=== PATIENT | male | born 1985 | race Caucasian/White ===

== ENCOUNTER 2020-07-01 23:55 | Inpatient (IN) | payer OTHER, BC ==
[2020-07-02] MEDS ORDERED: SODIUM CHLORIDE 0.9% 500 ML INFUS.BAG IV ONE (00:19)
[2020-07-02] MEDS ORDERED: ONDANSETRON 4 MG/2 ML VIAL IVPUSH ONE ×2 (00:19→02:41)
--- NOTE | 2020-07-02 00:25 | PDOC ---
History of Present Illness - General Chief Complaint: Nausea/Vomiting Stated Complaint: NAUSEA/VOMITING Time Seen by Provider: 07/02/20 00:11 Past History - Medical History Allergies/Adverse Reactions: Allergies Allergy/AdvReac Type Severity Reaction Status Date / Time Penicillins Allergy Intermediate Hives Verified 07/02/20 10:24 Home Medications: Ambulatory Orders Methylphenidate HCl [Methylphenidate ER] 20 mg PO PRN 07/02/20 Famotidine [Acid Controller] 20 mg PO BID #30 tablet 07/03/20 Metoclopramide HCl 5 mg PO Q6H PRN #30 tablet MDD For 07/03/20 - Psycho-Social/Smoking History Smoking History: Never smoked Have you smoked in the past 12 months: No Information on smoking cessation initiated: No - Substance Abuse Hx (Audit-C & DAST Scrn) How often the patient has a drink containing alcohol: Never Score: In Men: 4 or > Positive; In Women: 3 or > Positive: 0 Screen Result (Pos requires Nsg. Audit-10AR): Negative In the last yr the pt used illegal drug/Rx for NonMed reason: No Score: Yes response is considered Positive: 0 Screen Result (Positive result requires Nsg. 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 Endorses diffuse abdominal discomfort while retching started after vomiting. Tried Peptobismol without improvement. Unable to keep down anything. USOH prior to 5pm. ROS: Constitutional: Positive for feeling hot. Negative for chills, fever, fatigue, diaphoresis. HENT: Negative for sore throat, rhinorrhea, congestion. Eyes: Negative for visual disturbance. Respiratory: Negative for shortness of breath, cough, and wheezing. Cardiovascular: Negative for chest pain, palpitations, and leg swelling. Gastrointestinal: Positive for abdominal discomfort, nausea, and vomiting. Negative for blood in stool, constipation, diarrhea,. Genitourinary: Negative for dysuria, flank pain, and hematuria. Musculoskeletal: Negative for myalgias, back pain, and neck pain. Skin: Negative for rash. Neurological: Negative for light-headedness, dizziness, vertigo, syncope, weakness, numbness and headaches. Psychiatric/Behavioral: Negative for behavioral problems and confusion. PE: Gen: Alert, NAD, uncomfortable-appearing, actively throwing up HEENT: PERRL, EOMI, dry MM, NCAT. No conjunctival pallor. Sclera are non- icteric. CV: Regular rate and rhythm. No murmurs, rubs, or gallops. PULM: No resp distress. CTAB, no wheezes, rales, or rhonchi. ABD: soft, NT/ND, no rebound tenderness or guarding, no CVA tenderness. BACK: No TTP of c/t/l-spine. No step-offs or deformities. MSK: No bony deformities. 2+ pulses in all extremities. NEURO: AAOx3. PERRL. No gross CN deficits. Strength and sensation grossly intact throughout. EXTREMITIES: No cyanosis. No clubbing. No edema. No calf tenderness. PSYCH: Normal mood and thought pattern. SKIN: Warm and dry. Normal capillary refill. No rashes. No jaundice. 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 Tachycardic, hypertensive, otherwise hemodynamically stable, afebrile. Ddx: heat stroke, heat exhaustion, dehydration, rhabdo, ACS/AZ, arrhythmia, pancreatitis, metabolic derangement, anemia, infection -EKG -CXR -Zofran 4 -IVF -CBC,CMP,Lipase,Cardiac profile,Mg,Phos -Dispo: pending w/u and reassessment 07/02/20 02:35 EKG reviewed: NSR, 74bpm, normal axis, normal intervals, no TWIs, no ST elevations or depressions CXR reviewed: no acute pathology Continued nausea. -Reglan 10 Labs reviewed. Notable for hyponatremia 121 and hypomagnesemia 1.6 and leukocytosis 16 -1L LR finished, running 1L NS now Continued nausea. -Salas 4 -Admit for hyponatremia Discharge - Discharge Information Problems reviewed: Yes Clinical Impression/Diagnosis: Hyponatremia, Hypomagnesemia, Vomiting Condition: Improved Disposition: HOME - Admission Yes - Follow up/Referral - Patient Discharge Instructions - Post Discharge Activity
[2020-07-02] MEDS ORDERED: LACTATED RINGERS SOLUTION 1000 ML INFUS.BAG IV ONE (00:30)
--- NOTE | 2020-07-02 00:37 | PDOC ---
Documentation entered by Lynne Tariq SCRIBE, acting as scribe for Kacy Beatty MD. Kacy Beatty MD: This documentation has been prepared by the Leora dixon Sydney, SCRIBE, under my direction and personally reviewed by me in its entirety. I confirm that the documentation accurately reflects all work, treatment, procedures, and medical decision making performed by me. Attending Attestation - Resident Resident Name: Eusebia Botello - ED Attending Attestation I have performed the following: I have examined & evaluated the patient, The case was reviewed & discussed with the resident, I agree w/resident's findings & plan, Exceptions are as noted - HPI HPI: 07/02/20 00:28 Patient is a 34 year old male with a significant past medical history of ADHD, pyloric stenosis who presents to the ED with nausea and vomiting since 5pm this evening. 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 He also endorses feeling hot and abdominal pain secondary to retching. Patient took Pepto for his symptoms with no relief, prompting his arrival to the ED. Denies fever, shortness of breath, cough, or urinary changes. Allergies: NKDA - Physicial Exam PE: 07/02/20 00:31 wnwd 34 yo male worked outside all day and stated to feel very hot and start to vomit head ncat neck supple lungs cta b/l cvs [id number] abdomen no rebound skin warm and dry extremities no edema neuro axox3,ambualtory,motor strength 5/5 b/l - Medical Decision Making 07/02/20 00:44 pt was tachycardia and hypertensive upon arrival labs reveal imp heat exhaustion/dehydration plan IVFs ,zofran,repeat V,reassess 07/02/20 01:03 ekg NSR @ 74 bpm 07/02/20 01:58 Discharge - Discharge Information Problems reviewed: Yes Clinical Impression/Diagnosis: Hyponatremia, Hypomagnesemia, Vomiting Condition: Fair - Follow up/Referral - Patient Discharge Instructions - Post Discharge Activity
[2020-07-02 00:42] LABS: EOS % 0.1 % (0-4.5); HEMOGLOBIN 14.4 GM/dL (11.7-16.9); LYMPH % 7.9 % (8-40); MCH 30.1 pg (25.7-33.7); MCHC 34.3 g/dl (32.0-35.9); MEAN CELL VOLUME 87.9 fl (80-96); MEAN PLT VOLUME 7.4 fl (7.5-11.1); MONO % 6.1 % (3.8-10.2); NEUT % 85.9 % (42.8-82.8); PLATELET COUNT 300 K/MM3 (134-434); RBC 4.77 M/mm3 (4.00-5.60); RDW 12.4 % (11.9-15.9); WHITE BLOOD COUNT 16.5 K/mm3 (4.0-10.0)
[2020-07-02 01:05] LABS: ALBUMIN 4.4 g/dl (3.4-5.0); BILIRUBIN,TOTAL 1.4 mg/dL (0.2-1); BLOOD UREA NITROGEN 11.9 mg/dL (7-18); CALCIUM 8.2 mg/dL (8.5-10.1); CREATININE 1.1 mg/dL (0.55-1.3); MAGNESIUM 1.6 mg/dL (1.8-2.4); PHOSPHOROUS 2.8 mg/dL (2.5-4.9); POTASSIUM 3.9 mmol/L (3.5-5.1); TOT PROT 7.8 g/dl (6.4-8.2)
[2020-07-02] MEDS ORDERED: METOCLOPRAMIDE HCL INJECTION 10 MG/2 ML VIAL IVPB ONE (01:13)
[2020-07-02] MEDS ORDERED: METOCLOPRAMIDE HCL INJECTION 10 MG/2 ML VIAL ONE ×2 (01:21→11:27)
[2020-07-02] MEDS ORDERED: MAGNESIUM SULF 50% (8.12 MEQ/2 ML-1 GM VIAL) IVPB ONE (01:53)
[2020-07-02] MEDS ORDERED: MAGNESIUM 1GM/D5W - 1 GM/100 ML IVPB IVPB ONE ×2 (02:45→02:57)
[2020-07-02 03:16] LABS: URINE APPEARANCE CLEAR; URINE BILIRUBIN NEGATIVE (NEGATIVE); URINE COLOR YELLOW; URINE GLUCOSE (UA) TRACE (NEGATIVE); URINE KETONE 2+ (NEGATIVE); URINE LEUK ESTERASE NEGATIVE (NEGATIVE); URINE NITRITE NEGATIVE (NEGATIVE); URINE PROTEIN NEGATIVE (NEGATIVE); URINE UROBILINOGEN 0.2 mg/dL (0.2-1.0)
[2020-07-02] MEDS: SODIUM CHLORIDE 1,000 ML IV SCH ×3 (03:16→13:00)
--- NOTE | 2020-07-02 03:17 | HP ---
CHIEF COMPLAINT:nausea and projectile vomiting PCP: HISTORY OF PRESENT ILLNESS: 34 year old male with a significant past medical history of ADHD and pyloric stenosis who presents to the ED with nausea and vomiting since 5pm this evening. 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 He also endorses feeling hot and abdominal pain secondary to retching. Patient took Pepto for his symptoms with no relief of his symptoms prompting him to the ED.He denied chest pain or shortness of breath. ER course notable for- tachycardia elevated blood pressure leukocytosis (WBC 16.5) hyponatremia (sodium 121) received 1 LR and NS hypomagnesia, received 1 gm IV magnesium troponin normal, creatine kinase 358 UA normal, urine culture pending Recent Travel: no PAST MEDICAL HISTORY: ADHD PAST SURGICAL HISTORY: none Social History: Smoking:no Alcohol:no Drugs: no Family History: noncontributory Allergies No Known Allergies Allergy (Verified 07/02/20 00:04) HOME MEDICATIONS: none REVIEW OF SYSTEMS CONSTITUTIONAL: Absent: fever, chills, diaphoresis, generalized weakness, malaise, loss of appetite, weight change HEENT: Absent: rhinorrhea, nasal congestion, throat pain, throat swelling, difficulty swallowing, mouth swelling, ear pain, eye pain, visual changes CARDIOVASCULAR: Absent: chest pain, syncope, palpitations, irregular heart rate, lightheadedness, peripheral edema RESPIRATORY: Absent: cough, shortness of breath, dyspnea with exertion, orthopnea, wheezing, stridor, hemoptysis GASTROINTESTINAL: Absent: abdominal pain, abdominal distension, nausea,vomiting, diarrhea, constipation, melena, hematochezia GENITOURINARY: Absent: dysuria, frequency, urgency, hesitancy, hematuria, flank pain, genital pain MUSCULOSKELETAL: Absent: myalgia, arthralgia, joint swelling, back pain, neck pain SKIN: Absent: rash, itching, pallor HEMATOLOGIC/IMMUNOLOGIC: Absent: easy bleeding, easy bruising, lymphadenopathy, frequent infections ENDOCRINE: Absent: unexplained weight gain, unexplained weight loss, heat intolerance, cold intolerance NEUROLOGIC: Absent: headache, focal weakness or paresthesias, dizziness, unsteady gait, seizure, mental status changes, bladder or bowel incontinence PSYCHIATRIC: Absent: anxiety, depression, suicidal or homicidal ideation, hallucinations. PHYSICAL EXAMINATION Vital Signs - 24 hr 07/02/20 00:02 Temperature 98.8 F Pulse Rate 110 H Respiratory 20 Rate Blood Pressure 176/94 H O2 Sat by Pulse 98 Oximetry (%) General no acute distress Vital signs reviewed afebrile Neuro no focal deficits Neck no JVD Lungs CTA nonlabored breathing effort no rales no wheezing Heart s1s2 rate regular tachycardic Abdomen soft nontender nondistended Extremities warm to touch no pitting edema no cyanosis Skin nail beds and lips pink Mood calm Laboratory Results - last 24 hr 07/02/20 07/02/20 07/02/20 00:32 00:32 00:32 WBC 16.5 H RBC 4.77 Hgb 14.4 Hct 42.0 MCV 87.9 MCH 30.1 MCHC 34.3 RDW 12.4 Plt Count 300 MPV 7.4 L Absolute Neuts (auto) 14.2 H Neutrophils % 85.9 H Lymphocytes % 7.9 L Monocytes % 6.1 Eosinophils % 0.1 Basophils % 0.0 Nucleated RBC % 0 Sodium 121 L Potassium 3.9 Chloride 88 L Carbon Dioxide 22 Anion Gap 11 BUN 11.9 Creatinine 1.1 Est GFR (CKD-EPI)AfAm 101.69 Est GFR (CKD-EPI)NonAf 87.74 POC Glucometer Random Glucose 142 H Calcium 8.2 L Phosphorus 2.8 Magnesium 1.6 L Total Bilirubin 1.4 H AST 25 ALT 45 Alkaline Phosphatase 56 Creatine Kinase 358 H Creatine Kinase Index 0.8 CK-MB (CK-2) 3.1 Troponin I < 0.02 Total Protein 7.8 Albumin 4.4 Lipase 78 07/02/20 00:44 WBC RBC Hgb Hct MCV MCH MCHC RDW Plt Count MPV Absolute Neuts (auto) Neutrophils % Lymphocytes % Monocytes % Eosinophils % Basophils % Nucleated RBC % Sodium Potassium Chloride Carbon Dioxide Anion Gap BUN Creatinine Est GFR (CKD-EPI)AfAm Est GFR (CKD-EPI)NonAf POC Glucometer 134 Random Glucose Calcium Phosphorus Magnesium Total Bilirubin AST ALT Alkaline Phosphatase Creatine Kinase Creatine Kinase Index CK-MB (CK-2) Troponin I Total Protein Albumin Lipase ASSESSMENT/PLAN: In summary this is a 34 year old male with a significant past medical history of ADHD and pyloric stenosis who presented with nausea and vomiting. He was found to have hyponatremia, hypomagnesia and leukocytosis. In this setting he had tachycardia and elevated blood pressures. He is being admitted to the Medicine Service for further medical management/evaluation. #1 Hyponatremia in setting of Projectile Vomiting etiology of n/v unclear-?heat exhaustion, troponin normal c/w IVF NS @ 75cc/hr repeat BMP in am reglan prn #2 Hypomagnesia repleted repeat mag level in am #3 Abdominal Pain/Leukocytosis etiology unclear of n/v currently afebrile CT scan of abdomen with/without contrast ordered and pending to exclude inflammation/infectious process hold on IV antibiotics will keep NPO consider GI evaluation in am if continues to be symptomatic with n/v #4 Rule Out COVID follow up on COVID test maintain strict contact/droplet precautions DVT low risk FEN IVF NS @75cc/hr BMP in am, replete electrolytes as needed NPO Visit type - Emergency Visit Emergency Visit: Yes ED Registration Date: 07/02/20 Care time: The patient presented to the Emergency Department on the above date and was hospitalized for further evaluation of their emergent condition. - New Patient This patient is new to me today: Yes Date on this admission: 07/02/20 - Critical Care Critical Care patient: No
[2020-07-02] MEDS ORDERED: METOCLOPRAMIDE HCL INJECTION 10 MG/2 ML VIAL IVPUSH PRN (03:55)
[2020-07-02 07:20] LABS: HEMATOCRIT 38.6 % (35.4-49); HEMOGLOBIN 13.4 GM/dL (11.7-16.9); MCH 30.2 pg (25.7-33.7); MCHC 34.7 g/dl (32.0-35.9); MEAN CELL VOLUME 87.1 fl (80-96); MEAN PLT VOLUME 7.5 fl (7.5-11.1); PLATELET COUNT 288 K/MM3 (134-434); RBC 4.44 M/mm3 (4.00-5.60); RDW 12.6 % (11.9-15.9); WHITE BLOOD COUNT 12.2 K/mm3 (4.0-10.0)
[2020-07-02 07:52] LABS: BLOOD UREA NITROGEN 8.5 mg/dL (7-18); CALCIUM 8.1 mg/dL (8.5-10.1); CREATININE 0.8 mg/dL (0.55-1.3); MAGNESIUM 2.1 mg/dL (1.8-2.4)
--- NOTE | 2020-07-02 09:22 | PN ---
Progress Note, Physician Chief Complaint: Nausea vomiting History of Present Illness: 34 year old male with a significant past medical history of ADHD and pyloric stenosis who presents to the ED with nausea and vomiting after working upset and hot climate drinking only water and Gatorade sweating a lot patient feels weak dizzy with nausea came to ED for evaluation. - Current Medication List Current Medications: Active Medications Sodium Chloride (Normal Saline -) 1,000 mls @ 75 mls/hr IV ASDIR FEROZ Last Admin: 07/02/20 03:16 Dose: 75 mls/hr Documented by: Metoclopramide HCl (Reglan Injection -) 10 mg IVPUSH Q6H PRN PRN Reason: NAUSEA AND/OR VOMITING - Objective Vital Signs: Vital Signs Temperature 98.1 F 07/02/20 06:13 Pulse Rate 65 07/02/20 06:13 Respiratory Rate 19 07/02/20 06:13 Blood Pressure 146/85 07/02/20 06:13 O2 Sat by Pulse Oximetry (%) 100 07/02/20 06:13 General: Young female comfortable, not in distress HEENT mucous membranes moist, no anemia, no jaundice, PERRLA, no nystagmus Neck: No JVD, supple, no bruit, thyroid palpably normal, normal carotid pulsations. Chest: Nontender, clear to auscultation bilaterally CVS: S1-S2 regular no murmur/gallop/rub Abdomen: Nondistended, soft, bowel sounds present. 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 , no gross motor sensory deficit Labs: CBC, BMP 07/02/20 06:32 07/02/20 06:32 Problem List - Problems (1) Heat exhaustion Assessment/Plan: Patient presented with with exertion, dehydration, hyponatremia, no hypothermia feeling improved after IV hydration Problems reviewed: Yes Code(s): T67.5XXA - HEAT EXHAUSTION, UNSPECIFIED, INITIAL ENCOUNTER (2) Hyponatremia Assessment/Plan: Present with most likely hyponatremia, hypokalemia setting of dehydration and drinking only water, initial serum sodium 121 improved 124 of Lexapro nausea vomiting improved continue normal saline is 100 cc/h follow-up BMP in the p.m. Problems reviewed: Yes Code(s): E87.1 - HYPO-OSMOLALITY AND HYPONATREMIA (3) Hypomagnesemia Assessment/Plan: Repleted follow-up BM Problems reviewed: Yes Code(s): E83.42 - HYPOMAGNESEMIA
[2020-07-02] MEDS ORDERED: METHYLPHENIDATE HCL 20 MG PO SCH (09:30)
--- NOTE | 2020-07-02 10:33 | EKG ---
Test Reason : Blood Pressure : / mmHG Vent. Rate : 074 BPM Atrial Rate : 074 BPM P-R Int : 158 ms QRS Dur : 086 ms QT Int : 388 ms P-R-T Axes : 037 033 032 degrees QTc Int : 430 ms NORMAL SINUS RHYTHM NORMAL ECG NO PREVIOUS ECGS AVAILABLE Confirmed by MD Markus, Casey ([id number]) on 07/02/2020 10:32:36 AM Referred By: Confirmed By:Casey Aparicio MD
[2020-07-02] MEDS: FAMOTIDINE 20 MG/50 ML IVPB 20 MG/50 ML MG IVPB SCH ×2 (11:00→21:37)
[2020-07-02] MEDS ORDERED: FAMOTIDINE 20 MG/50 ML IVPB 20 MG/50 ML MG IVPB ONE (11:12)
[2020-07-02 16:29] VITALS: BMI 29.7
[2020-07-02 19:55] LABS: BLOOD UREA NITROGEN 7.9 mg/dL (7-18); CALCIUM 8.4 mg/dL (8.5-10.1); POTASSIUM 4.4 mmol/L (3.5-5.1)
[2020-07-03] MEDS: SODIUM CHLORIDE 1,000 ML IV SCH (04:20)
--- NOTE | 2020-07-03 08:26 | DS ---
Physical Examination Vital Signs: Vital Signs Temperature 99.1 F 07/03/20 06:00 Pulse Rate 80 07/03/20 06:00 Respiratory Rate 18 07/03/20 06:00 Blood Pressure 139/86 07/03/20 06:00 O2 Sat by Pulse Oximetry (%) 100 07/03/20 06:00 General: Young MAN comfortable, not in distress HEENT mucous membranes moist, no anemia, no jaundice, PERRLA, no nystagmus Neck: No JVD, supple, no bruit, thyroid palpably normal, normal carotid pulsations. Chest: Nontender, clear to auscultation bilaterally CVS: S1-S2 regular no murmur/gallop/rub Abdomen: Nondistended, soft, bowel sounds present. 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 On arrival patient was hyponatremic serum sodium 121 clinically dehydrated, hypomagnesemia serum sodium greatly improved 134 milliequivalent over hours symptoms resolved patient is tolerating p.o. denies any nausea vomiting. 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
[2020-07-03 08:32] LABS: BASO % 0.4 % (0-2.0); EOS % 1.5 % (0-4.5); HEMATOCRIT 42.1 % (35.4-49); HEMOGLOBIN 14.3 GM/dL (11.7-16.9); LYMPH % 19.3 % (8-40); MCH 30.1 pg (25.7-33.7); MCHC 34.1 g/dl (32.0-35.9); MEAN CELL VOLUME 88.4 fl (80-96); MEAN PLT VOLUME 7.9 fl (7.5-11.1); MONO % 12.2 % (3.8-10.2); NEUT % 66.6 % (42.8-82.8); PLATELET COUNT 295 K/MM3 (134-434); RBC 4.77 M/mm3 (4.00-5.60); RDW 12.9 % (11.9-15.9)
[2020-07-03 08:48] LABS: BLOOD UREA NITROGEN 9.4 mg/dL (7-18); CALCIUM 8.6 mg/dL (8.5-10.1); CREATININE 0.9 mg/dL (0.55-1.3); POTASSIUM 4.6 mmol/L (3.5-5.1)
[2020-07-03] MEDS: FAMOTIDINE 20 MG/50 ML IVPB 20 MG/50 ML MG IVPB SCH (09:48)
[2020-07-03 11:08] VITALS: BP 139/75; PULSE 85; TEMP 98.7
== END 2020-07-03 15:25 | disposition home or self-care (01) | DRG 923 ==
LOC: JER 23:55 → JERBED 07-02 02:37 → J5S 07-02 15:52
PROVIDERS: ADMIT Internal Medicine; ATTEND Internal Medicine
DX: T67.5XXA Heat exhaustion, unspecified, initial encounter (principal); E87.1 Hypo-osmolality and hyponatremia; E83.42 Hypomagnesemia; E86.0 Dehydration; D72.829 Elevated white blood cell count, unspecified; R00.0 Tachycardia, unspecified; X58.XXXA Exposure to other specified factors, initial encounter; Y93.89 Activity, other specified; Y92.89 Other specified places as the place of occurrence of the external cause; Y99.8 Other external cause status
CPT/HCPCS: 36415; 71045-TC-FY; 71270-TC; 80048; 80053; 81003; 82550; 82553; 82962; 83690; 83735; 84100; 84484; 85025; 85027; 87086; 93005; 93010; 99285-25; U0003